=== PATIENT | male | born 1955 | race Caucasian/White ===

== ENCOUNTER 2016-12-19 20:33 | Emergency (ER) | payer BC ==
[~2016-12-19] VITALS: Ht 175.3 cm; Wt 114.0 kg
[~2016-12-19 20:33] MED LIST: PSDUNK PO
[2016-12-19 20:37] VITALS: TEMP 37; Ht 175.3 cm; Wt 114.0 kg
--- NOTE | 2016-12-19 21:20 | EMERGENCY ROOM VISIT NOTE ---
History First contact with patient: 20:55 Chief Complaint: RIB PAIN Stated Complaint: RIB PAIN History of Present Illness The patient is a 61 year old male who presents to the Emergency Room with complaints of right-sided rib pain. The patient states that he was at a restaurant earlier today and began to choke. He states that the mud mill tender gave him the Heimlich maneuver which didn't dislodge the food. He felt a pop in the right side of his ribs. He states he has had point tenderness since then. He rates his discomfort a 3/10. The patient is worse with movement and palpation. He denies any fevers, trouble breathing or coughing. He denies any abdominal pain, nausea, vomiting or diarrhea. Review of Systems A 10 system review of systems was completed with positives and pertinent negatives listed in the HPI. Past Medical/Surgical History Medical Problems: (1) pharyngeal mass Social History Smoking Status: Never Smoker Occupation Status: employed Current/Historical Medications Scheduled Pseudoephedrine Hcl (Sudafed), 2 TABS PO QAM Allergies Coded Allergies: No Known Allergies (Unverified , 06/20/12) Physical Exam Vital Signs Date Time Temp Pulse Resp B/P Pulse Ox O2 Delivery O2 Flow Rate FiO2 12/19/16 22:30 88 20 145/78 99 12/19/16 20:37 37.0 79 18 155/77 93 Room Air Physical Exam VITALS: Vitals are noted on the nurse's note and reviewed by myself. Vital signs stable. GENERAL: This is a 61-year-old male, in no acute distress, nondiaphoretic, well- developed well-nourished. SKIN: The skin was without rashes, erythema, edema, or bruising. There is no tenting of the skin. Capillary reflex less than 2 seconds. HEAD: Normocephalic atraumatic. EARS: The external ears are normal in appearance EYES: Pupils equal round and reactive to light and accommodation. Conjunctivae without injection, sclerae without icterus. Extraocular movements intact. NOSE: Patent, turbinates without inflammation or discharge. MOUTH: Mucous membranes moist. Tonsils are not enlarged. Pharynx without erythema or exudate. Uvula midline. Airway patent. Tongue does not deviate. NECK: Supple without nuchal rigidity. No JVD. HEART: Regular rate and rhythm without murmurs gallops or rubs. LUNGS: Clear to auscultation bilaterally without wheezes, rales or rhonchi. No retractions or accessory muscle use. There is point tenderness to the right lower anterior ribs. ABDOMEN: Positive bowel sounds x 4. Soft, nontender, without masses or organomegaly. Glez sign negative. MUSCULOSKELETAL: No muscle atrophy, erythema, or edema noted. Full range of motion in all extremities. Normal gait. Strength 5/5 throughout. NEURO: Patient was alert and oriented to person place and time. No focal neurological deficits. Medical Decision & Procedures ER Provider Diagnostic Interpretation: RIGHT RIBS UNILATERAL WITH PA CHEST CLINICAL HISTORY: Right rib pain status post trauma COMPARISON STUDY: No previous studies for comparison. FINDINGS: There is deformity of the distal right clavicle, likely posttraumatic or postsurgical. The heart is the upper limits of normal in size. There is bibasal atelectasis. There is no pneumothorax. There is a right ninth rib deformity which is felt to be old. No acute right-sided rib fractures are visualized. IMPRESSION: No evidence of pneumothorax. No acute rib fractures are visualized. Medications Administered Medications (Trade) Dose Ordered Sig/Natali Route Start Time Stop Time Status Last Admin Dose Admin Acetaminophen/ Hydrocodone Bitart ([place] 5/325mg Home Pack) 1 homepack UD ONCE PO 12/19/16 22:15 12/19/16 22:16 DC 12/19/16 22:15 1 HOMEPACK ED Course The patient was seen and examined. Previous visits were reviewed. The patient is afebrile. He is not tachycardic, tachypneic or hypoxic. He has not had any shortness of breath or cough. He has not had any complaints of abdominal pain, nausea or vomiting. He does not have any abdominal tenderness on examination. X-ray does not reveal any acute rib fracture, pneumothorax or obvious abnormality. The patient may have a cartilage injury to the right anterior ribs after receiving the Heimlich maneuver earlier today. He declined any pain medication while he was in the emergency department. He was given a take-home pack of [place]. He should return immediately with any of the above symptoms. Otherwise, he should follow-up with his family doctor next week. Medical Decision The differential diagnosis includes rib fracture, pneumothorax, hemothorax, rib contusion, cartilage injury, aspiration pneumonia, among others Impression Primary Impression: Rib contusion Departure Information Dispostion Home / Self-Care Condition GOOD Referrals No Doctor, Assigned (PCP) Patient Instructions ED Contusion Rib, [facility] Additional Instructions Ibuprofen 600 mg every 6-8 hours for moderate pain [place] 1 tablet every 6 hours if needed for worse pain. Do not drink or drive while taking [place] and do not take with Tylenol. Return with fevers, trouble breathing, abdominal pain or generalized worsening symptoms. Otherwise, recheck with your family doctor next week. Problem Qualifiers Primary Impression: Rib contusion Encounter type: initial encounter Laterality: right Qualified Codes: S20.211A - Contusion of right front wall of thorax, initial encounter
[2016-12-19] MEDS ORDERED: PSEU30TA64 PO (21:40)
--- NOTE | 2016-12-19 21:53 | DIAGNOSTIC IMAGING REPORT ---
RIGHT RIBS UNILATERAL WITH PA CHEST CLINICAL HISTORY: Right rib pain status post trauma COMPARISON STUDY: No previous studies for comparison. FINDINGS: There is deformity of the distal right clavicle, likely posttraumatic or postsurgical. The heart is the upper limits of normal in size. There is bibasal atelectasis. There is no pneumothorax. There is a right ninth rib deformity which is felt to be old. No acute right-sided rib fractures are visualized. IMPRESSION: No evidence of pneumothorax. No acute rib fractures are visualized. Electronically signed by: Brandon Coello M.D. 12/19/2016 9:51 PM Dictated Date/Time: 12/19/2016 9:48 PM
[2016-12-19] MEDS ORDERED: NORCO 5/325MG HOME PACK PO ONE (22:15)
[2016-12-19 22:30] VITALS: BP 145/78; PULSE 88; O2SAT 99
== END 2016-12-19 22:42 | disposition home or self-care (01) ==
LOC: C.EDB 20:34 → C.EDD 22:42
DX: S20.211A Contusion of right front wall of thorax, initial encounter (principal); W51.XXXA Accidental striking against or bumped into by another person, initial encounter; Y92.511 Restaurant or cafe as the place of occurrence of the external cause